=== PATIENT | female | born 1965 | race Caucasian/White ===

== ENCOUNTER 2022-11-16 14:29 | Emergency (ER) | payer MEDICARE, SELFPAY ==
[2022-11-16 14:31] VITALS: BP 148/86; PULSE 75; RESP 18; TEMP 36.8; O2SAT 95
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
== END 2022-11-16 15:18 | disposition home or self-care (01) ==
LOC: ER 15:26
PROVIDERS: Emergency Provider Emergency Medicine
DX: T23.262A Burn of second degree of back of left hand, initial encounter (principal); X10.0XXA Contact with hot drinks, initial encounter; S61.213A Laceration without foreign body of left middle finger without damage to nail, initial encounter; W25.XXXA Contact with sharp glass, initial encounter
CPT/HCPCS: 12001; 99283

== ENCOUNTER 2023-01-20 03:38 | Outpatient (CLI) | payer MEDICARE, SELFPAY ==
[2023-01-20 15:57] LABS: ESR 4 mm/hr (0-30)
[2023-01-20 16:53] LABS: C-Reactive Protein 0.09 mg/dL (0.0-0.3)
== END 2023-01-20 03:39 | disposition home or self-care (01) ==
LOC: LBO 03:38
PROVIDERS: PCP Family Medicine; Visit Provider Family Medicine
DX: R51.9 Headache, unspecified (principal)
CPT/HCPCS: 36415; 85652; 86140

== ENCOUNTER 2023-02-05 14:20 | Outpatient (CLI) | payer MEDICARE, SELFPAY | END 2023-02-05 14:21 | disposition home or self-care (01) | LOC: DIORS 14:21 | PROVIDERS: PCP Nurse Practitioner Adult Health; Referring Provider Nurse Practitioner Adult Health; Visit Provider Student in an Organized Health Care Education/Training Program | DX: M75.102 Unspecified rotator cuff tear or rupture of left shoulder, not specified as traumatic | CPT/HCPCS: 99204; 99213 ==

== ENCOUNTER 2023-04-09 08:03 | Outpatient (CLI) | payer MEDICARE, SELFPAY ==
--- NOTE | 2023-04-09 08:00 | RT.EKG_ITS ---
APPROVED REPORT Exam: Resting ECG Reason for Exam: medication monitoring encounter Patient Location: O HR:61 bpm ECG Measurements Heart Rate 61 AXIS DC 112 P 60 QRSd 90 QRS 59 QT 458 T 55 QTc 462 Conclusion Sinus rhythm...normal P axis, V-rate 50- 99 Borderline short DC interval...DC int <120mS Otherwise normal ECG
== END 2023-04-09 08:04 | disposition home or self-care (01) ==
PROVIDERS: PCP Nurse Practitioner Adult Health; Visit Provider Nurse Practitioner Adult Health
DX: Z51.81 Encounter for therapeutic drug level monitoring (principal)
CPT/HCPCS: 93010

== ENCOUNTER 2023-04-21 03:03 | Outpatient (CLI) | payer MEDICARE, SELFPAY ==
[2023-04-21 08:30] LABS: ALT 40 U/L (14-59); AST 38 U/L (15-37); Albumin 4.4 g/dL (3.4-5.0); Alkaline Phosphatase 59 U/L (46-116); Anion Gap 11.5 mmol/L (3-11); BUN 21 mg/dL (7-18); Bilirubin, Total 1.2 mg/dL (0.2-1.0); CO2 26.5 mmol/L (21.0-32.0); CREATININE 0.7 mg/dL (0.55-1.02); Calcium 9.2 mg/dL (8.5-10.1); Calculated LDL 130 mg/dL (<100); Chloride 103 mmol/L (98-107); Cholesterol 218 mg/dL (<200); Estimated GFR 100.19 (mL/min/1.73m2); Glucose 106 mg/dL (74-106); HDL Cholesterol 73 mg/dL (40-60); Potassium 3.6 mmol/L (3.5-5.1); Sodium 141 mmol/L (136-145); TSH (W/Ref FT4) 1.56 uIU/mL (0.36-3.74); Total Protein 8.2 g/dL (6.4-8.2); Triglyceride 75 mg/dL (<150); Vitamin B12 1754 pg/mL (193-986)
[2023-04-21 08:32] LABS: Folate > 20.0 ng/mL (8.6-20.0)
[2023-04-21 08:54] LABS: Vitamin D 25 Total 49.4 ng/mL (30-100)
[2023-04-22 09:17] LABS: HIV-1/2 Ag & Ab Screen Negative (Negative)
[2023-04-22 10:40] LABS: Hepatitis C Ab w Rflx HCV PCR Negative (Negative)
== END 2023-04-21 03:04 | disposition home or self-care (01) ==
LOC: LBO 03:03
PROVIDERS: PCP Nurse Practitioner Adult Health; Visit Provider Nurse Practitioner Adult Health
DX: Z11.4 Encounter for screening for human immunodeficiency virus [HIV] (principal); Z11.59 Encounter for screening for other viral diseases; Z13.1 Encounter for screening for diabetes mellitus; Z13.220 Encounter for screening for lipoid disorders; Z78.0 Asymptomatic menopausal state; E03.9 Hypothyroidism, unspecified; F50.9 Eating disorder, unspecified
CPT/HCPCS: 36415; 80053; 80061; 82306; 86803; 87389; 82607; 82746; 84443

== ENCOUNTER 2023-05-12 04:40 | Outpatient (CLI) | payer MEDICARE, MEDICAID, SELFPAY ==
[2023-05-12 16:05] LABS: ALT 38 U/L (14-59); AST 28 U/L (15-37); Albumin 4.4 g/dL (3.4-5.0); Alkaline Phosphatase 75 U/L (46-116); Anion Gap 9.1 mmol/L (3-11); BUN 15 mg/dL (7-18); Bilirubin, Total 0.5 mg/dL (0.2-1.0); CO2 27.9 mmol/L (21.0-32.0); CREATININE 0.6 mg/dL (0.55-1.02); Calcium 9.2 mg/dL (8.5-10.1); Chloride 99 mmol/L (98-107); Estimated GFR 103.33 (mL/min/1.73m2); Glucose 88 mg/dL (74-106); Potassium 4.5 mmol/L (3.5-5.1); Sodium 136 mmol/L (136-145); Total Protein 7.2 g/dL (6.4-8.2)
== END 2023-05-12 04:41 | disposition home or self-care (01) ==
PROVIDERS: PCP Nurse Practitioner Adult Health; Visit Provider Registered Nurse Psychiatric/Mental Health
DX: M75.112 Incomplete rotator cuff tear or rupture of left shoulder, not specified as traumatic (principal)
CPT/HCPCS: 36415; 80053; 99214

== ENCOUNTER 2023-05-13 01:50 | Outpatient (CLI) | payer MEDICARE, MEDICAID, SELFPAY ==
--- NOTE | 2023-05-13 07:15 | DI.US_ITS ---
Exam(s) US PELVIS TRANSVAGINAL EXAM: US PELVIS TRANSVAGINAL CLINICAL HISTORY: YEARLY EVAL RT OVARIAN CYST,N83.209 TECHNIQUE: Ultrasound of the pelvis was performed both transabdominal and transvaginal. COMPARISON: No exams were available for comparison FINDINGS: UTERUS: Surgically absent. RIGHT OVARY: Measures 3.2 x 2.3 x 1.9 cm No significant cysts nor masses evident in the right ovary. LEFT OVARY: Measures 2.9 x 1.0 x 2.4 cm No significant cysts nor masses evident in the left ovary. CUL-DE-SAC: No free fluid evident. IMPRESSION: 1. Uterus is surgically absent. 2. No abnormal ovarian findings. 3. No extraovarian adnexal masses and no free fluid in the cul-de-sac. DATA REPOSITORY:
--- NOTE | 2023-05-13 10:06 | DI.RAD_ITS ---
Exam(s) XR HIP PELVIS ADULT BL EXAM: XR HIP PELVIS ADULT BL CLINICAL HISTORY: B/L hip pain,M16.10,ARTHRITIS. TECHNIQUE: 2D digital imaging was performed. COMPARISON: No exams were available for comparison FINDINGS: 3 views No evidence of pelvic nor hip fractures. Minimal degenerative changes in the hips. Disc space narro wing lower lumbar spine noted. Bone density normal. No osseous lesions. SI joints appear unremarka ble. IMPRESSION: No fractures. Minimal degenerative changes in the hips. DATA REPOSITORY: RADIATION DOSE DELIVERED:
== END 2023-05-13 02:10 ==
PROVIDERS: PCP Nurse Practitioner Adult Health; Visit Provider Family Medicine
DX: M16.11 Unilateral primary osteoarthritis, right hip (principal); M16.12 Unilateral primary osteoarthritis, left hip; Z90.710 Acquired absence of both cervix and uterus; N83.291 Other ovarian cyst, right side
CPT/HCPCS: 73521; 76830; 76856

== ENCOUNTER → 2023-07-08 02:33 | Outpatient (CLI) | payer MEDICARE, MEDICAID, SELFPAY ==
--- NOTE | 2023-07-08 08:45 | DI.MAMMO_ITS ---
Exam(s) MAMMO SCREENING EXAM: MAMMO SCREENING CLINICAL HISTORY: screening,Z12.39 TECHNIQUE: Mammograms were interpreted according to the usual protocol including computer analysis w [employer] CAD system, tomosynthesis and C-view imaging. COMPARISON: BI MAMMOGRAM SCREENING (BILATERAL) from 12/14/2020 [facility]ON MAMMO SCREENING(SHAVON) from 01/21/2022 FINDINGS: The breasts are composed of scattered fibroglandular densities, Breast Density category B. No suspicious masses or suspicious microcalcifications are seen. No skin thickening or abnormal axillary lymph nodes are seen. There has been no significant change from prior exams. IMPRESSION: BI-RADS Category 1, Negative mammogram Yearly screening mammography is recommended. Breast Density - Category B, scattered fibroglandular densities. A negative radiographic report should not delay biopsy if a dominant or clinically suspicious mass is present. Up to ten percent of cancers are not identified on mammography. A negative report may reinforce clinical impression. Adenosis and dense breasts may obscure an underlying neoplasm. False positive reports average 6 to 10%. Patient will receive a letter notifying them of these results.
== END ==
PROVIDERS: PCP Nurse Practitioner Adult Health; Visit Provider Nurse Practitioner Adult Health
DX: Z12.31 Encounter for screening mammogram for malignant neoplasm of breast (principal)
CPT/HCPCS: 77063; 77067

== ENCOUNTER 2023-07-25 13:13 | Emergency (ER) | payer MEDICARE, MEDICAID, SELFPAY ==
[2023-07-25 13:18] VITALS: BP 124/72; PULSE 70; RESP 20; TEMP 36.3; O2SAT 99
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
[2023-07-25 13:59] LABS: Source Nasopharynx
[2023-07-25 14:12] LABS: Bilirubin Negative (Negative); Blood Trace-intact (Negative); Clarity Clear (Clear); Glucose Negative (Negative); Ketones Negative (Negative); Leukocyte Esterase Negative (Negative); Nitrite Negative (Negative); Urobilinogen 0.2 mg/dL (Up to 0.2)
[2023-07-25 14:14] VITALS: RESP 18
[2023-07-25 14:23] LABS: Bacteria Few HPF (Negative); C & S Indicated? No; Casts Negative LPF (Negative); Crystals Negative HPF (Negative); Epithelial Cells Few HPF (Negative); Mucus Negative (Negative); RBC 0-2 HPF (0-2); WBC Negative HPF (0-5)
[2023-07-25 14:33] LABS: COVID-19 PCR Negative (Negative)
[2023-07-25 14:43] VITALS: BP 124/72; PULSE 70; RESP 18; TEMP 36.3; O2SAT 99
[2023-07-25 15:03] VITALS: BP 124/72; PULSE 70; RESP 18; TEMP 36.3; O2SAT 99
== END 2023-07-25 15:02 | disposition home or self-care (01) ==
PROVIDERS: Emergency Provider Student in an Organized Health Care Education/Training Program; PCP Nurse Practitioner Adult Health
DX: R53.81 Other malaise (principal); N89.8 Other specified noninflammatory disorders of vagina; E03.9 Hypothyroidism, unspecified; F31.9 Bipolar disorder, unspecified; R05.9 Cough, unspecified
CPT/HCPCS: 81025; 87635; 99283; 81003; 81015

== ENCOUNTER 2023-09-06 10:56 | Emergency (ER) | payer MEDICARE, MEDICAID, SELFPAY ==
[2023-09-06 10:57] VITALS: BP 133/68; PULSE 68; RESP 18; TEMP 36.6; O2SAT 98
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
== END 2023-09-06 12:12 | disposition home or self-care (01) ==
PROVIDERS: Emergency Provider Emergency Medicine; PCP Nurse Practitioner Adult Health
DX: R21 Rash and other nonspecific skin eruption (principal)
CPT/HCPCS: 99283; 99284

== ENCOUNTER 2023-09-15 03:22 | Outpatient (CLI) | payer MEDICARE, MEDICAID, SELFPAY ==
[2023-09-15 12:37] LABS: HGB 13.8 g/dL (11.2-15.7); MCH 31.5 pg (27.0-33.0); MCHC 35.4 % (32.0-36.0); MCV 89 fL (80-95); MPV 8.5 fL (8.0-11.0); Platelet Count 195 10^3/uL (130-400); RBC 4.38 10^6/uL (3.93-5.22); RDW 12.1 % (11.7-14.6); RDW-SD 39.8 fL; WBC 4.56 10^3/uL (4.4-10.8)
[2023-09-15 13:10] LABS: ALT 47 U/L (14-59); AST 32 U/L (15-37); Albumin 3.6 g/dL (3.4-5.0); Alkaline Phosphatase 81 U/L (46-116); Anion Gap 10.3 mmol/L (3-11); BUN 13 mg/dL (7-18); Bilirubin, Total 0.4 mg/dL (0.2-1.0); CO2 26.7 mmol/L (21.0-32.0); CREATININE 0.7 mg/dL (0.55-1.02); Calcium 8.6 mg/dL (8.5-10.1); Chloride 98 mmol/L (98-107); Estimated GFR 99.57 (mL/min/1.73m2); Glucose 88 mg/dL (74-106); Potassium 4.2 mmol/L (3.5-5.1); Sodium 135 mmol/L (136-145); Total Protein 7.3 g/dL (6.4-8.2)
== END 2023-09-15 03:23 | disposition home or self-care (01) ==
LOC: LBO 03:22
PROVIDERS: PCP Nurse Practitioner Adult Health; Visit Provider Nurse Practitioner Adult Health
DX: F31.60 Bipolar disorder, current episode mixed, unspecified (principal); Z51.81 Encounter for therapeutic drug level monitoring
CPT/HCPCS: 36415; 80053; 85027; 80164

== ENCOUNTER 2024-06-10 03:35 | Outpatient (CLI) | payer MEDICARE, SELFPAY ==
[2024-06-10 07:31] LABS: Hemoglobin A1C 5.4 % (<5.7)
[2024-06-10 07:51] LABS: ALT 45 U/L (14-59); AST 33 U/L (15-37); Albumin 4.2 g/dL (3.4-5.0); Alkaline Phosphatase 72 U/L (46-116); Anion Gap 7.6 mmol/L (3-11); BUN 25 mg/dL (7-18); Bilirubin, Total 1.13 mg/dL (0.2-1.0); CO2 29.4 mmol/L (21.0-32.0); CREATININE 0.8 mg/dL (0.55-1.02); Calcium 9.3 mg/dL (8.5-10.1); Calculated LDL 64 mg/dL (<100); Chloride 106 mmol/L (98-107); Cholesterol 177 mg/dL (<200); Glucose 101 mg/dL (74-106); HDL Cholesterol 104 mg/dL (40-60); Potassium 4.2 mmol/L (3.5-5.1); Sodium 143 mmol/L (136-145); TSH (W/Ref FT4) 1.57 uIU/mL (0.36-3.74); Total Protein 7.7 g/dL (6.4-8.2); Triglyceride 45 mg/dL (<150)
== END 2024-06-10 03:36 | disposition home or self-care (01) ==
LOC: LBO 03:35
PROVIDERS: Absent Provider Nurse Practitioner Adult Health; PCP Nurse Practitioner Adult Health; Referring Provider Nurse Practitioner Adult Health; Visit Provider Nurse Practitioner Adult Health
DX: R73.01 Impaired fasting glucose (principal); E03.9 Hypothyroidism, unspecified; R74.01 Elevation of levels of liver transaminase levels
CPT/HCPCS: 36415; 80053; 80061; 83036; 84443

== ENCOUNTER 2024-09-02 01:02 | Outpatient (CLI) | payer MEDICARE, SELFPAY ==
--- NOTE | 2024-09-02 09:15 | DI.MAMMO_ITS ---
Exam(s) MAMMO SCREENING EXAM: MAMMO SCREENING CLINICAL HISTORY: screening,z12.39 TECHNIQUE: Mammograms were interpreted according to the usual protocol including computer analysis w copygram CAD system, tomosynthesis and C-view imaging. COMPARISON: 2020 through 2022 FINDINGS: The breasts are composed of mainly fatty density , Breast Density category A. No suspicious masses or suspicious microcalcifications are seen. No skin thickening or abnormal axillary lymph nodes are seen. There has been no significant change from prior exams. IMPRESSION: BI-RADS Category 1, Negative mammogram Yearly screening mammography is recommended. Breast Density - Category A, fatty density. A negative radiographic report should not delay biopsy if a dominant or clinically suspicious mass is present. Up to ten percent of cancers are not identified on mammography. A negative report may reinforce clinical impression. Adenosis and dense breasts may obscure an underlying neoplasm. False positive reports average 6 to 10%. Patient will receive a letter notifying them of these results.
== END 2024-09-02 01:22 ==
LOC: DI 01:02
PROVIDERS: PCP Nurse Practitioner Adult Health; Visit Provider Nurse Practitioner Adult Health
DX: Z12.31 Encounter for screening mammogram for malignant neoplasm of breast (principal); R92.313 Mammographic fatty tissue density, bilateral breasts
CPT/HCPCS: 77063; 77067

== ENCOUNTER 2024-10-01 01:23 | Outpatient (CLI) | payer MEDICARE, SELFPAY ==
[2024-10-01 12:15] LABS: Abs Immature Grans 0.01 10^3/uL (0.0-0.06); Absolute Basophil Count 0.03 10^3/uL (0.0-0.2); Absolute Eosinophil Count 0.09 10^3/uL (0.0-0.7); Absolute Lymphocyte Count 1.34 10^3/uL (1.2-3.4); Absolute Monocyte Count 0.31 10^3/uL (0.1-0.8); Absolute Neutrophil Count 2.77 10^3/uL (1.2-6.7); Basophils % 0.7 %; ESR 10 mm/hr (0-30); HCT 41.4 % (36.0-46.0); Immature Grans % 0.2 %; Lymphocytes % 29.5 %; MCHC 33.8 % (32.0-36.0); MCV 92 fL (80-95); MPV 9.8 fL (8.0-11.0); Monocytes % 6.8 %; Neutrophils % 60.8 %; Platelet Count 210 10^3/uL (130-400); RBC 4.52 10^6/uL (3.93-5.22); RDW-SD 40.5 fL; WBC 4.55 10^3/uL (4.4-10.8)
[2024-10-01 12:38] LABS: C-Reactive Protein < 0.50 mg/dL (<or=0.5)
[2024-10-03 21:49] LABS: Anaplasma phagocytophilum Negative (Negative); B. miyamotoi PCR Negative (Negative); Babesia divergens/MO-1 Negative (Negative); Babesia duncani Negative (Negative); Babesia microti Negative (Negative); Ehrlichia chaffeensis Negative (Negative); Ehrlichia ewingii/canis Negative (Negative); Ehrlichia muris eauclairensis Negative (Negative)
[2024-10-04 10:22] LABS: Lyme Ab w Rflx to Lyme Confirm Negative (Negative)
== END 2024-10-01 01:24 | disposition home or self-care (01) ==
LOC: LOS 01:23
PROVIDERS: PCP Nurse Practitioner Adult Health; Visit Provider Nurse Practitioner Family
DX: R23.2 Flushing (principal)
CPT/HCPCS: 36415; 85652; 87798; 85025; 86140; 86618

== ENCOUNTER 2024-10-15 00:33 | Outpatient (CLI) | payer MEDICARE, SELFPAY ==
[2024-10-15] MEDS: Barium Sulfate 2% W/V-Berry Smoothie 450 ML BTL PO ×2 (12:02→12:03)
[2024-10-15 12:07] LABS: CREATININE 0.8 mg/dL (0.55-1.02)
[2024-10-15] MEDS: Omnipaque 350 MG/ML 100 ML BTL IJ (14:29)
[2024-10-15] MEDS: Normal Saline - Diluent 50 ML VIAL IJ (14:29)
--- NOTE | 2024-10-15 14:35 | DI.CT_ITS ---
Exam(s) CT CHEST/ABD/PEL W EXAM: CT CHEST/ABD/PEL W CLINICAL HISTORY: sweating profusely, elevated b12, generalized hyperhidrosis, R79.89 TECHNIQUE: Imaging Protocol: Axial computed tomography images with coronal and sagittal reformatted images were created and reviewed. Lung Computer Aided Detection (CAD) was utilized. CONTRAST MATERIAL: Intravenous: Omnipaque 350 contrast volume:100 mL Oral: Yes COMPARISON: No exams were available for comparison FINDINGS: CHEST: Tracheobronchial tree: Patent where visualized. No evidence of bronchiectasis. Pulmonary parenchyma: No consolidation or dominant measurable mass. No architectural distortion. Ther e is a 3 mm nodule in the right middle lobe laterally (series 12 image 70). Visualized thyroid gland: Unremarkable. Mediastinum and Bryanna: No dominant adenopathy or fluid collection. The esophagus is unremarkable. Pleura: No effusion or pneumothorax. Heart: The heart is not dilated. No coronary artery calcifications are seen. No pericardial effusion. Pulmonary arteries: Due to the timing of the bolus, peripheral pulmonary arteries are insufficiently opacified for evaluation of pulmonary emboli. No large central pulmonary embolism is present. Aorta: Thoracic aorta non-dilated. Atherosclerotic calcification is present. Lymph nodes: Within normal limits. Soft tissues: Unremarkable. Bones:Within normal limits for the patient's age. ABDOMEN: Liver: No aggressive osseous lesions are present. No measurable mass. Portal, Superior Mesenteric, and Splenic Veins: Unremarkable. Gallbladder and Biliary Tract: No radiodense calculus or dilation. Pancreas: Normal density, no abnormal calcifications or inflammatory process. Spleen: Normal. Adrenals: No masses seen. Kidneys: Normal size, contour and axis. No radiodense stones or obstructive uropathy. There are small hypodensities seen in the right kidney likely reflecting small cysts. No follow-up is recommended. No suspicious renal masses are present. Abdominal Aorta: Abdominal portion non-dilated. Atherosclerotic calcification is present. Bowel: No obstruction or bowel wall thickening. Appendix is unremarkable. Peritoneal Cavity: No ascites, collection or mesenteric inflammatory response. No free air. Lymph Nodes: Within normal limits. Bones: Within normal limits for the patient's age. Soft Tissues: Unremarkable. PELVIS: Bladder: Symmetric distention, no gross wall thickening. Reproductive Organs: There is a pessary in place. Lymph Nodes: Within normal limits. Bones: Within normal limits. IMPRESSION: 1. No acute pulmonary process. 2. 3 mm nodule in the right middle lobe. Solid nodules smaller than 6 mm do not require routine follow-up in all patients with high clinical r isk; however, some nodules smaller than 6 mm with suspicious morphology, upper lobe location, or both may warrant follow-up at 12 months (grade 2A; weak recommendation, high-quality evidence). (Chantal et al., 2017) Single solid noncalcified nodules. ???Solid nodules smaller than 6 mm (those 5 mm or smaller) do not require routine follow-up in patients at low risk (grade 1C; strong recommendation, low- or very-low- quality evidence). (Chantal et al., 2017) 3. No acute abdominal or pelvic process. RADIATION DOSE DELIVERED: 391.47mGy.cm Total DLP DATA REPOSITORY: All CT scans at this facility are submitted to the National Radiology Data Registry (NRDR) Dose Index Registry (DIR) with the [employer] ([employer]). RADIATION OPTIMIZATION: All CT scans at this facility use at least one of these dose optimization te chniques: automated exposure control; mA and/or kV adjustment per patient size (includes targeted exa ms where dose is matched to clinical indication); or iterative reconstruction.
== END 2024-10-15 00:53 ==
LOC: DI 00:34
PROVIDERS: PCP Nurse Practitioner Family; Visit Provider Nurse Practitioner Family
DX: R61 Generalized hyperhidrosis (principal); R79.89 Other specified abnormal findings of blood chemistry
CPT/HCPCS: 74177; 71260; 82565; J3490

== ENCOUNTER 2025-01-06 08:51 | Outpatient (CLI) | payer MEDICARE, SELFPAY | END 2025-01-06 08:52 | disposition home or self-care (01) | PROVIDERS: PCP Nurse Practitioner Family; Visit Provider Nurse Practitioner Family | DX: R00.1 Bradycardia, unspecified (principal) | CPT/HCPCS: 93246 ==

== ENCOUNTER 2025-02-15 06:52 | Outpatient (CLI) | payer MEDICARE, SELFPAY ==
--- NOTE | 2025-02-15 09:10 | W.CARDEVENT ---
Date of service: 02/15/25 Time of Service: 09:10 Cardiac Event Recorder Referring Provider:: Bianca Matute Indications:: Bradycardia Cardiac Event Note: This is a cardiac event monitor. Patient was monitored for 3 days and 4 hours. Rhythm throughout was sinus with an average heart rate of 61. Minimum was 36, maximum 154. There were very rare isolated atrial and ventricular ectopic beats. There was no atrial fibrillation, no high-grade AV block, no pauses greater than 3 seconds. Patient symptoms were reported. These had no correlation to any dysrhythmia, corresponding to sinus rhythm approximately 70 bpm
== END 2025-02-15 06:53 | disposition home or self-care (01) ==
LOC: CARDOPNVT 06:52
PROVIDERS: PCP Nurse Practitioner Family; Visit Provider Internal Medicine Cardiovascular Disease
DX: R00.1 Bradycardia, unspecified (principal)
CPT/HCPCS: 93248

== ENCOUNTER 2025-02-18 01:32 | Outpatient (CLI) | payer MEDICARE, SELFPAY ==
--- NOTE | 2025-02-18 09:26 | DI.RAD_ITS ---
Exam(s) XR LUMBAR SPINE COMPLETE EXAM: XR LUMBAR SPINE COMPLETE CLINICAL HISTORY: new low back pain,rt lumbar radiculopathy,m54.16. TECHNIQUE: 2D digital imaging was performed of the lumbar spine. Five images were obtained. AP, la teral, right oblique, left oblique and L5-S1 spot views were obtained. COMPARISON: CR XR HIP PELVIS ADULT BL from 05/13/2023 FINDINGS: BONES: No fracture or destructive lesion. There are endplate osteophytes seen at L2-L3 through L5-S1. There are degenerative changes of the facets at L5-S1. DISKS: There is mild disc space narrowing at L2-L3 and L5-S1. There is a vacuum disc at L4-5 and L5- S1. ALIGNMENT: Lumbar spinal alignment is within normal limits. No spondylolysis or spondylolisthesis. SOFT TISSUE: Atherosclerotic calcification is present. IMPRESSION: Moderate degenerative changes in the lumbar spine. DATA REPOSITORY: RADIATION DOSE DELIVERED:
== END 2025-02-18 01:52 ==
LOC: DI 01:32
PROVIDERS: PCP Nurse Practitioner Family; Visit Provider Nurse Practitioner Family
DX: M54.16 Radiculopathy, lumbar region (principal)
CPT/HCPCS: 72110

== ENCOUNTER 2025-03-15 12:34 | Emergency (ER) | payer MEDICARE, SELFPAY ==
[2025-03-15] VITALS (25 sets, daily range): BP systolic 140–198; BP diastolic 54–98; PULSE 49–80; RESP 10–24; TEMP 36.8; O2SAT 96–99
--- NOTE | 2025-03-15 12:30 | RT.EKG_ITS ---
APPROVED REPORT Exam: Resting ECG Reason for Exam: high bp Patient Location: E HR:83 bpm ECG Measurements Heart Rate 83 AXIS TX 106 P 82 QRSd 80 QRS 81 QT 414 T 59 QTc 487 Conclusion Sinus rhythm...normal P axis, V-rate 60- 99 Consider left ventricular hypertrophy...(S V1+R V5/V6) >3.25mV No Occlusion VT
[2025-03-15 13:22] LABS: Abs Immature Grans 0.01 10^3/uL (0.0-0.06); Absolute Basophil Count 0.02 10^3/uL (0.0-0.2); Absolute Eosinophil Count 0.05 10^3/uL (0.0-0.7); Absolute Lymphocyte Count 1.65 10^3/uL (1.2-3.4); Absolute Neutrophil Count 2.83 10^3/uL (1.2-6.7); Basophils % 0.4 %; HCT 43.2 % (36.0-46.0); HGB 14.6 g/dL (11.2-15.7); Immature Grans % 0.2 %; Lymphocytes % 33.3 %; MCH 30.7 pg (27.0-33.0); MCHC 33.8 % (32.0-36.0); MCV 91 fL (80-95); MPV 9.6 fL (8.0-11.0); Monocytes % 8.1 %; Platelet Count 195 10^3/uL (130-400); RBC 4.75 10^6/uL (3.93-5.22); RDW-SD 40.1 fL; WBC 4.96 10^3/uL (4.4-10.8)
--- NOTE | 2025-03-15 13:39 | DI.RAD_ITS ---
Exam(s) XR PORTABLE CHEST AP EXAM: XR PORTABLE CHEST AP CLINICAL HISTORY: Chest pain. TECHNIQUE: 2D digital imaging was performed. COMPARISON: No exams were available for comparison FINDINGS: Single AP portable view. Heart size is upper normal. The mediastinum is not widened. Lungs are clear. No infiltrates nor obvious pleural effusions. IMPRESSION: No acute pulmonary findings on this single AP portable view of the chest. DATA REPOSITORY: RADIATION DOSE DELIVERED:
[2025-03-15 13:44] LABS: ALT 46 U/L (14-59); AST 38 U/L (15-37); Albumin 4.5 g/dL (3.4-5.0); Alkaline Phosphatase 100 U/L (46-116); Anion Gap 8.8 mmol/L (3-11); BUN 24 mg/dL (7-18); Bilirubin, Total 0.9 mg/dL (0.2-1.0); CO2 28.2 mmol/L (21.0-32.0); CREATININE 0.8 mg/dL (0.55-1.02); Calcium 9.7 mg/dL (8.5-10.1); Chloride 104 mmol/L (98-107); Glucose 138 mg/dL (74-106); Magnesium 2.2 mg/dL (1.8-2.4); NT-proBNP 115 pg/mL (<300); Potassium 3.9 mmol/L (3.5-5.1); Sodium 141 mmol/L (136-145)
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
[2025-03-15 14:01] LABS: Troponin I < 4 ng/L (<or=51)
[2025-03-15 14:11] LABS: D-Dimer 714 ng/mlFEU (<500)
--- NOTE | 2025-03-15 14:15 | DI.CT_ITS ---
Exam(s) CT CHEST PE CTA EXAM: CT CHEST PE CTA CLINICAL HISTORY: Shortness of breath chest pain. TECHNIQUE: Imaging Protocol: CT angiography of the chest was performed using pulmonary embolus marielena col. Multi planar reconstructions were performed. CONTRAST MATERIAL: Intravenous: Omnipaque 350 Contrast volume: 100 cc COMPARISON: CT CT CHEST/ABD/PEL W from 10/15/2024 FINDINGS: CHEST: PULMONARY ARTERIES: There are no intraluminal filling defects to suggest acute pulmonary emboli. LUNGS: There are no infiltrates nor evidence of pulmonary infarction.. Previously described 3 millim eter nodule in the lateral aspect the right middle lobe is unchanged. There are no pleural effusions . MEDIASTINUM: There is no hilar nor mediastinal adenopathy. Scratch CARDIAC: Heart size is upper normal. There is no pericardial effusion.Caliber of the thoracic aorta is within normal limits. No evidence of dissection. There is no significant shift of the interventri cular septum. PARTIALLY VISUALIZED UPPERMOST ABDOMEN: No obvious findings OSSEOUS: No significant osseous lesions.Fractures.. IMPRESSION: 1. No evidence of acute pulmonary emboli. No evidence of pulmonary infarction.No pleural effusions. 2. No infiltrates nor intrathoracic adenopathy. 3. No evidence of aortic dissection nor pericardial effusion. Report called by myself to ER 03/15/2025 at 3:30 p.m. RADIATION DOSE DELIVERED: 73.52mGy.cm Total DLP DATA REPOSITORY: All CT scans at this facility are submitted to the National Radiology Data Registry (NRDR) Dose Index Registry (DIR) with the [employer] (ACR). RADIATION OPTIMIZATION: All CT scans at this facility use at least one of these dose optimization te chniques: automated exposure control; mA and/or kV adjustment per patient size (includes targeted exa ms where dose is matched to clinical indication); or iterative reconstruction.
[2025-03-15] MEDS: Omnipaque 350 MG/ML 100 ML BTL IJ (15:12)
[2025-03-15] MEDS: Normal Saline - Diluent 50 ML VIAL IJ (15:14)
== END 2025-03-15 16:29 | disposition home or self-care (01) ==
PROVIDERS: Emergency Provider Emergency Medicine; PCP Nurse Practitioner Family
DX: R91.1 Solitary pulmonary nodule (principal); R07.9 Chest pain, unspecified; R06.02 Shortness of breath; Z59.41 Food insecurity; Z59.12 Inadequate housing utilities; Z59.89 Other problems related to housing and economic circumstances; Z60.8 Other problems related to social environment
CPT/HCPCS: 99285 ×2; 36415; 71275; 80053; 93005; 93308; 71045; 83735; 83880; 84484; 85025; 85379; 93010; J3490

== ENCOUNTER 2025-04-01 01:37 | Outpatient (CLI) | payer MEDICARE, SELFPAY ==
[2025-04-01 08:51] LABS: Anion Gap 8.9 mmol/L (3-11); BUN 26 mg/dL (7-18); CO2 30.1 mmol/L (21.0-32.0); CREATININE 0.8 mg/dL (0.55-1.02); Calcium 9.2 mg/dL (8.5-10.1); Chloride 103 mmol/L (98-107); Glucose 80 mg/dL (74-106); Potassium 4.2 mmol/L (3.5-5.1); Sodium 142 mmol/L (136-145); TSH (W/Ref FT4) 0.98 uIU/mL (0.36-3.74)
== END 2025-04-01 01:38 | disposition home or self-care (01) ==
LOC: LBO 01:37
PROVIDERS: PCP Nurse Practitioner Family; Referring Provider Nurse Practitioner Family; Visit Provider Nurse Practitioner Family
DX: E03.9 Hypothyroidism, unspecified (principal); I10 Essential (primary) hypertension
CPT/HCPCS: 36415; 80048; 84443

== ENCOUNTER 2025-06-13 04:32 | Outpatient (CLI) | payer MEDICARE, SELFPAY ==
[2025-06-13 08:53] LABS: TSH 1.17 uIU/mL (0.36-3.74)
[2025-06-17 17:41] LABS: Metanephrine, Free 0.28 nmol/L (<0.50); Normetanephrine, Free 0.77 nmol/L (<0.90)
== END 2025-06-13 04:33 | disposition home or self-care (01) ==
PROVIDERS: PCP Nurse Practitioner Family; Visit Provider Internal Medicine
DX: R61 Generalized hyperhidrosis (principal); E03.9 Hypothyroidism, unspecified
CPT/HCPCS: 36415; 82533; 83003; 83525; 83835; 84439; 84443; 84681